=== PATIENT | female | born 1950 | race Caucasian/White ===

== ENCOUNTER → 2018-07-03 | Day surgery (SDC) | payer MEDICARE, OTHER ==
[~2018-07-03] MED LIST: Lactated Ringers 1,000 ML IV SCH; Propofol 200 MG/20 ML SDV IV ONE
--- NOTE | 2018-07-03 11:27 | OR ---
DATE OF OPERATION: 07/03/2018 PREOPERATIVE DIAGNOSIS: ALTERED BOWEL HABITS. POSTOPERATIVE DIAGNOSIS: ALTERED BOWEL HABITS. SURGEON: Hernesto Lilly MD PROCEDURE: FULL-LENGTH COLONOSCOPY WITH BIOPSY X1. ANESTHESIA: BRIM STIFFENER. COMPLICATIONS: None. SPECIMEN: Cecal biopsy x1. FINDINGS: 1. Full-length colonoscopy. 2. Cecal thickening, nonspecific and likely benign. RECOMMENDATIONS: Follow up pathology with Dr. Schwartz. INDICATIONS: The patient had a prior colonoscopy eight years ago. She has had occasional hematochezia and she feels it is hemorrhoid related. Dr. Schwartz sent her for scope. DESCRIPTION OF PROCEDURE: The patient was prepped and draped, placed in the left lateral decubitus position. A lubricated Olympus colonoscope was inserted and easily advanced to the cecum. Direct visualization of the ileocecal valve and appendiceal orifice was accomplished. The bowel prep was adequate. Upon withdrawal, the patient had a little bit of thickening of the cecal pouch, it is very nonspecific and likely benign, but we did do a biopsy for confirmation. The rest of the ascending and transverse colon were completely benign. The entire left colon showed no signs of any polyps, mass, ulceration, or bleeding sites. No vascular abnormalities or signs of colitis. The rectal vault was unremarkable. Retroflexion of scope in the rectum showed no anal lesions. Air was suctioned and the scope was removed without complication. GREGG/MALCOLM /[id number] cc: [place] [id number]
== END ==
LOC: CC.SDS 08:04
PROVIDERS: ATTEND Family Medicine
DX: R19.4 Change in bowel habit (principal); K92.1 Melena; K63.89 Other specified diseases of intestine; I10 Essential (primary) hypertension; E03.9 Hypothyroidism, unspecified; M19.90 Unspecified osteoarthritis, unspecified site; Z79.82 Long term (current) use of aspirin; Z79.899 Other long term (current) drug therapy; Z88.5 Allergy status to narcotic agent; Z98.890 Other specified postprocedural states
CPT/HCPCS: 00811; J2704; J7120

== ENCOUNTER 2023-11-21 07:52 | Day surgery (SDC) | payer MEDICARE, OTHER ==
[2023-11-21] MEDS: Lactated Ringers 1,000 ML IV SCH (08:10)
[2023-11-21] MEDS ORDERED: Propofol 200 MG/20 ML SDV ONE ×2 (08:35)
[2023-11-21] MEDS ORDERED: Lidocaine 2% 20 ML MDV ONE (08:35)
[2023-11-21] MEDS ORDERED: fentaNYL 50 MCG/ML SDV ONE (08:35)
[2023-11-21] MEDS ORDERED: Ketamine 200 MG/20 ML MDV ONE (08:35)
== END 2023-11-21 10:22 | disposition home or self-care (01) ==
LOC: CC.SDS 07:52
PROVIDERS: ATTEND Family Medicine
DX: K63.89 Other specified diseases of intestine (principal); K29.50 Unspecified chronic gastritis without bleeding; K25.9 Gastric ulcer, unspecified as acute or chronic, without hemorrhage or perforation; I16.0 Hypertensive urgency; G44.209 Tension-type headache, unspecified, not intractable; E03.9 Hypothyroidism, unspecified; Z88.5 Allergy status to narcotic agent; Z79.899 Other long term (current) drug therapy; Z79.82 Long term (current) use of aspirin; Z79.890 Hormone replacement therapy; Z98.890 Other specified postprocedural states; E78.5 Hyperlipidemia, unspecified
CPT/HCPCS: 43239; 45380; 87081; J2704; J3010; J7120; 00813; 88305; 99100; J3490